=== PATIENT | male | born 1960 | race Caucasian/White ===

== ENCOUNTER → 2020-10-02 | Outpatient (CLI) | payer BC | END | disposition home or self-care (01) | LOC: LABPAT 09:08 | PROVIDERS: ATTEND Orthopaedic Surgery | DX: M50.821 Other cervical disc disorders at C4-C5 level (principal); Z22.322 Carrier or suspected carrier of Methicillin resistant Staphylococcus aureus | CPT/HCPCS: 86850; 86900; 86901; 87070 ==

== ENCOUNTER 2020-10-13 13:00 | Observation (INO) | payer BC ==
[2020-10-08 12:08] VITALS: BMI 30.9
--- NOTE | 2020-10-12 16:09 | P.HPOR ---
History of Present Illness Chief Complaint: UE radiculopathy, weakness, neck pain Patient presents with neck pain. He notes pain for the past 5 months. he is here in referral from Dr. Gates and Dr. Bravo.Patient states that pain has progressively increased recently.He notes pain in the center of his neck that radiates into his bilateral upper extremity . He has numbness, weakness and stiffness. He did physical therapy with minimal relief. He takes [place] and Naproxen twice daily.states he has difficulty with fine motor skills buttoning things and reaching behind his back. He denies any imbalance. Denies any perineal numbness or tingling of fevers chills shortness of breath or chest pain at time Pt has been seen by 3 different surgeons, myself included, and has done his research. He states he would like to pursue disc replacement for his neck. He has undergone all conservative measures including, PT, home exercise, home traction, medications OTC and Rx as well as injections without improvement in his symptoms. He states he is ready for surgery. Review of Systems 14 points review of systems completed and as stated in HPI, all other systems reviewed are negative. Past Medical History Past Medical History: Hypertension, Osteoarthritis (OA), Prostate Disorder, Skin Disorder Additional Past Medical History / Comment(s): hx psoriasis, elevated PSA, states always has postnasal drip History of Any Multi-Drug Resistant Organisms: None Reported Past Surgical History: Joint Replacement, Orthopedic Surgery, Tonsillectomy Additional Past Surgical History / Comment(s): bharath hip reaplacements, arthroscopy bharath knees, Past Anesthesia/Blood Transfusion Reactions: No Reported Reaction Smoking Status: Former smoker - Past Family History Mother Family Medical History: No Reported History Medications and Allergies Home Medications Medication Instructions Recorded Confirmed Type Acetaminophen [Tylenol Extra 500 mg PO DIRECTED PRN 10/08/20 10/08/20 History Strength] HYDROcodone/APAP 5-325MG [Auburn 0.5 tab PO DIRECTED PRN 10/08/20 10/08/20 History 5-325] Naproxen 375 mg PO BID 10/08/20 10/08/20 History lisinopriL 30 mg PO DAILY 10/08/20 10/08/20 History Allergies Allergy/AdvReac Type Severity Reaction Status Date / Time No Known Allergies Allergy Verified 10/08/20 11:58 Physical Examination Osteopathic Statement: *. No significant issues noted on an osteopathic structural exam other than those noted in the History and Physical/Consult. General: Awake, alert, appropriate for age, in no acute distress. HEENT: No unusual neck masses around region of lateral neck triangle, thyroid, supraclavicular groove Heart: Regular rate and rhythm, normal S1, S2 and no murmur/gallop. Lungs: Clear to auscultation bilaterally with no use of accessory muscles. Extremities: Skin warm and dry without acute lesions, coloration, temperature, skin intact, no tenderness or erythema Integument: Hairy patches: Absent Dorsal skin dimples: Absent Cafe au lait spots: Absent Palpation: Please see Pain drawing on Intake sheet for further detail. Midline spinal tenderness: yes cervical E6 Paralumbar tenderness: No E6 Parathoracic tenderness: No E6 Buttocks tenderness: No E6 POSTURAL and MUSCULO-SKELETAL EVALUATION: Coronal Balance: Neutral Recumbent testing: Patient is able to lay flat on back Sagittal Balance: Neutral Shoulder Profile: [Level] Pelvic Girdle: [Level] Neck ROM: some restrictions Shoulder ROM: Symmetric in abduction, ER/IR VASCULAR STATUS : LEFT RIGHT Wrist Pulses intact intact Pedal Pulses (Dors. pedis & post.tibialis) intact intact Color normal normal Edema Absent Absent NEUROLOGIC EXAMINATION: Mental Status: Awake and alert, fully oriented, with normal attention, concentration and memory, and fluent, appropriate speech. Cranial Nerves: I: Olfactory not tested. II: Visual acuity normal, no visual field deficit noted with confrontation. III,IV: Normal pupillary reflexes & intact extraocular movements without nystagmus. V,: Intact symmetrical facial sensation. VII: Intact symmetrical facial motor movement VIII: Hearing intact. IX,X: Intact gag, swallow, & normal voice. XI: Sternocleidomastoid, trapezius function intact. XII: Tongue midline with normal movements. L'hermitte's Sign: Negative / absent Spurling'Sign: Absent bilaterally. Cubital percussion test: Absent bilaterally. Xi-Tinel sign - Carpal region: Absent bilaterally. Straight Leg Raising: Absent bilaterally. Crossed straight leg raise: negative O8 MOTOR EXAM (0-5/5, N/T) STRENGTH RIGHT LEFT Shoulder Abd (not part of the KALEY score) 4 4 Elbow Flexors 5 5 Elbow Extensor 5 5 Wrist Dorsiflexors 5 5 Finger Abductor 5 5 Architectural Drafting Instructor 4 4 Hip Flexor (Not part of KALEY Motor score) 5 5 Knee Flexor 5 5 Knee Extensor 5 5 Ankle dorsiflexor 5 5 Ankle plantarflexion 5 5 Extensor hallucis 5 5 REFLEXES(0-4/2, NT) RIGHT LEFT Upper Extremities 2 2 Lower Extremities 2 2 Pathological Reflexes RIGH T LEFT Montemayor's Absent Absent Clonus Absent Absent Sensory system (0-4, N/T) Test type RU BRITTON RL LL Joint-Position 2 2 2 2 Vibration 2 2 2 2 Pain & LT sense 2 2 2 2 Dermatomal Deficit: none none none none Gait and Functional Evaluation: Romberg's test: Intact bilaterally Toe heel walk / heel-toe walk intact while maintaining satisfactory balance? yes Squatting/straightening w/o assistance to a min of 60 degree knee flexion? yes Single leg stance: intact Trendelenburg sign negative bilaterally Hand and finger dexterity intact bilaterally? yes Disdiadochokinesis examination negative bilaterally? yes Results AP lateral flexion extension films of the cervical from 08/28/2020 spine were reviewed. Occipital cervical C1 2 joints appear stable. The patient does have some cervical spondylosis from C3 to C7 which is noted. Overall alignment is well-maintained sagittal coronal planes. There is no observable facet arthrosis . No fractures dislocations or other lesions noted. MRI is an outside study from [facility] was reviewed. This does demonstrate cervical spondylosis anterior from C4 to C7. There is cervical stenosis from C3 to C6 which seems to be the worst. At C4 5 most central stenosis. There is no myelomalacia noted. There is no fracture dislocation or other lesions noted. Occipital cervical C1 2 joints appear stable. There is no observable facet arthrosis noted. CT of c spine shows similar findings with no facet arthrosis noted. Discussed pts EMG and CT of cervical spine as well as MRI with him. He does have disease from C3-6 and would likey benefit from TDR. He is on board with this and will schedule an appt to meet and schedule surgery. Assessment and Plan Assessment: 1. C4-5 HNP with radiculopathy and stenosis 2. C5-6 HNP with radiculopathy and stenosis 3. C3-4 Stenosis 4. b/l UE weakness and radiculopathy Plan: Spine Surgery Risk Review Dg Duran is a 60-year-old male presenting for evaluation of bilateral upper extremity radiculopathy weakness and neck pain. It was my pleasure to have seen and examined Dg Duran. In our visit today we have had a chance to go over subjective complaints, physical examination findings and treatments including the natural course history without intervention and various interventional options. The patients imaging demonstrates C4 5 and C5 6 stenosis with disc herniation at these levels there is anterior spondylosis noted. There is no myelomalacia of fracture or dislocation there is minimal stenosis at C3 4 which is noted as well. On physical exam, Dg Duran demonstrates bilateral upper extremity weakness bilateral upper extremity radiculopathy. I have explained to the patient that as their condition progresses it will cause further neurological deficits and eventual paralysis. Based on the patients imaging, physical exam, and the rapid progression and disabling nature of their symptoms, at this time I recommend surgery in the form or a: C4 5 and C5 6 total disc replacement. I discussed the risk and benefits of this procedure at length with Dg Duran The patient agreed to considered pursuing the procedure abovementioned. Prior to surgery, he should follow up with her PCP (Cardio, ID, IM etc) for clearance. Questions were invited and answered, and the patient wishes to proceed as outlined below. Currently, I am recommendin. C4 5 and C5 6 total disc replacement 2. Follow up with PCP for surgical clearance 3. Review of surgical risks and benefits as well as an educational packet on the proposed surgical procedure. Risks: All surgical procedures come with inherent risks, including those related to positioning, anesthesia, intraoperative findings, and postoperative complications. It is important to understand that surgery does not come with any guarantee of a successful outcome as complications and adverse events are always possible. The patient was given a handout in office today discussing the surgical procedure and risks associated with the intervention, both of which were discussed with the patient. These risks include but are not limited to the following: * Experiencing same, different or even worse symptoms in back, neck, arms, or legs compared to before surgery. * Requiring further surgery or other forms of treatment presently or at some time in the future at same or other levels of the intended spine surgery. * On an extreme but fortunately relatively rare basis severe complication such as blindness, stroke, heart attack, temporary and/or permanent nerve injury, paralysis, coma, or may occur, sometimes without known explanation. * Surgical complications may include but are not limited to risk of infection, fluid accumulation in the surgical dissection site, including a seroma or hematoma, that requires additional surgery, wound drainage, bleeding, new numbness or weakness, vision changes/loss, spinal fluid leakage, non-healing and/or infected incision, headaches, difficulty or inability to swallow, hoarseness, hemopneumothorax, pneumothorax, impotence, retrograde ejaculation, vaginal dryness; injury to nerves, spinal cord, blood vessels, lymphatics or other vital organs (i.e., bowel injury, injury to the great vessels); heterotopic bone formation; complications related to the hardware such as screws, rods, cages including misplaced hardware, device failure, instrumentation at the wrong spine level, hardware fracture/breakage, or hardware loosening; vertebral failure of the spinal column above or below the newly placed hardware; retained surgical instrumentations or devices and the need for further surgery. * Medical risks of the planned spine surgery include but are not limited to generalized Infections to the whole body or local areas outside of the surgical site (sepsis), heart attack, bleeding, anaphylaxis, meningitis, seizure, epilepsy, hearing loss, burn hernandez, laceration of the head or other areas of the body, bruising, hypersensitivity of the skin, bladder over distension; allergic reaction; shoulder injury related to positioning; fat, blood and air clots to other areas of the body like heart, lungs, brain; f ailure of internal organs such as lungs, kidneys, liver and excessive bleeding. If blood transfusions are necessary, note that transfusions may cause intolerance reactions such as anaphylaxis or other complex reactions. * Despite best efforts, the results of spine surgery might not heal in terms of bone, soft tissues such as skin, fascia, ligaments, and joints. Additionally, in order to achieve best possible results, spine surgery may be carried out beyond the initially planned levels and involve decompression, fusion including insertion of hardware at levels other than the original intended a chasity of surgical interest change some portions of the procedure in order to ensure the best possible outcomes. * With spine surgery and spinal fusion, there are different off label uses of instrumentation (devices, implants and hardware) as well as biological substances (bone morphogenic proteins, demineralized bone matrix) as well as using extra bone from allograft sources (i.e. cadaver bone) or autograft (iliac crest bone, ribs, or the spine itself). The patient has been given information about these practices and their inherent risks and benefits. * [facility] is an educational center that serves as a training facility for neurosurgical and orthopedic spine residents and fellows. Residents are physicians who are completing their surgical intensive training following medical school. They assist in the operating room with direct supervision of the attending surgeons. [place] are surgeons who have completed their training and eligible for board certification. They have o pted for an elective year of more specialized training in their field. They assist in the operating room under the supervision of the attending surgeons. Physician assistants are medically trained surgical providers who function in the outpatient, inpatient, and operating room setting under the direct supervision of the attending surgeon. * [facility] has multiple operating rooms with single and overlapping rooms running daily. They currently function under the required guidelines as produced by the [facility] Finance Committee with regards to the overlapping rooms and will continue to comply with changes to this policy as they occur. The requirements include and are complied with as follows: (1) the critical portions of the overlapping rooms will not occur at the same time, (2) the attending physician will be physically present during the critical portions of the procedure and immediately available during the entire case, and (3) a back-up attending is designated should the primary attending not be immediately available. * * we discussed at length the different clinical signs and symptoms imaging as well as surgical option for the patient. The patient has done his homework he is very well educated he is looked at all the different options and visited 2 different surgeons. At this time he feels a disc replacement is the best option for him. He does not want fusion. He has done his homework and he knows that there is a risk of adjacent segment breakdown with fusion which is mitigated and lessened by having disc replacements. I discussed the risks and benefits as well as the options and alternatives to screw placement. We did discuss that the type of disc he wants by [facility] is only FDA approved for 1 level but we would make attempts to get this approved for the levels that he needs done as it is the best option disc replacement for him. This is a semi-constraint disc with good track record which would allow for decompression stability as well as the correct amount of motion for him. He feels that this is his best option and would like to pursue this. The patient has had a chance to review all the listed information, has been given print outs detailing this information, and has had all his/her questions answered to their satisfaction. It was my pleasure to have seen and examined Dg Duran. In our visit today we have had a chance to go over my understanding of our patient's current condition, the natural course history without intervention and various interventional options. Questions were invited and answered, and the patient wishes to proceed as outlined above. I have seen and examined the patient for 25 minutes and we have spent more than 50% of the time in repeat and detailed counseling about the patient's condition, its natural course history with out and as much as can be predicted with surgery and re-review of various surgical treatment options. In conclusion, Dg Duran and requested we proceed with the above suggested surgery and are willing to accept risks and limitations of the suggested surgery as nature of the disease process and our best attempts at treatment for the condition. Thank you again for allowing us to be part of your patient's care. Please don't hesitate to contact me if you have any further questions. Signed and authenticated by: Leonard Bautista [facility], [address] [address] Time with Patient: Greater than 30
[~2020-10-13 13:00] MED LIST: ACETAMINOPHEN TAB 500 MG TAB PO PRN; DEXAMETHASONE SOD PHOSPHATE 4 MG/ML 1 ML VIAL IV ONE; GABAPENTIN 300 MG CAP PO PRN; LIDOCAINE 1% (10MG/ML) FOR IV START INTRADERMA PRN; MIDAZOLAM 2 MG/2 ML VIAL IV PRN; ONDANSETRON 4 MG/2 ML VIAL IVP ONE; ONDANSETRON 4 MG/2 ML VIAL IVP PRN; TRANEXAMIC ACID 1,000 MG in SODIUM CHLORIDE 0.9% 100 ML IVPB PRN
[2020-10-13] MEDS: LACTATED RINGERS 1,000 ML IV SCH (13:43)
[2020-10-13] MEDS ORDERED: KETOROLAC 15 MG/ML 1 ML VIAL ONE (16:55)
[2020-10-13] MEDS ORDERED: LABETALOL 5 MG/ML VIAL MDV ONE (16:55)
[2020-10-13] MEDS ORDERED: PROPOFOL 10 MG/ML 20 ML VIAL IV ONE (16:55)
[2020-10-13] MEDS ORDERED: MIDAZOLAM 2 MG/2 ML VIAL ONE (16:55)
[2020-10-13] MEDS ORDERED: LIDOCAINE 1% INJ 10MG/ML (20 ML MDV) ONE (16:55)
[2020-10-13] MEDS ORDERED: fentaNYL (PF) 50 MCG/ML 2 ML AMP ONE ×2 (16:55)
[2020-10-13] MEDS ORDERED: KETAMINE 10 MG/ML 20 ML VIAL ONE (16:55)
[2020-10-13] MEDS ORDERED: DEXAMETHASONE SOD PHOSPHATE 10 MG/ML 1 ML VIAL ONE (16:55)
[2020-10-13] MEDS ORDERED: TRANEXAMIC ACID 1,000 MG/10 ML VIAL ONE (16:55)
[2020-10-13] MEDS ORDERED: SUCCINYLCHOLINE CHLORIDE 100 MG/5 ML SYR IV ONE (16:55)
[2020-10-13] MEDS ORDERED: THROMBIN (BOVINE) 5,000 UNIT VIAL TOPICAL ONE (17:26)
[2020-10-13] MEDS ORDERED: LIDOCAINE 2% INJ 20 MG/ML SQ ONE (17:46)
[2020-10-13] MEDS ORDERED: GELATIN SPONGE,ABSORB (LARGE) 1 EACH SPONGE TOPICAL ONE (17:46)
[2020-10-13] MEDS ORDERED: LACTATED RINGERS 1,000 ML IV ONE (19:30)
[2020-10-13] MEDS ORDERED: HYDROcodone/APAP 10-325MG 1 EACH TAB PO PRN (20:12)
[2020-10-13] MEDS ORDERED: ONDANSETRON 4 MG/2 ML VIAL IVP PRN (20:12)
[2020-10-13] MEDS ORDERED: CYCLOBENZAPRINE 10 MG TAB PO PRN (20:12)
[2020-10-13] MEDS ORDERED: HYDROcodone/APAP 5-325MG 1 EACH TAB PO PRN (20:12)
[2020-10-13] MEDS ORDERED: DEXAMETHASONE SOD PHOSPHATE 4 MG/ML 1 ML VIAL IV PRN (20:16)
--- NOTE | 2020-10-13 20:22 | XR ---
EXAMINATION TYPE: XR cervical spine limited DATE OF EXAM: 10/13/2020 COMPARISON: NONE HISTORY: Intraoperative TECHNIQUE: 6 views submitted FINDINGS: Endotracheal tube noted. Technique markedly limited. Resolution reduced. Metallic instrumen t is seen anterior to a multiple cervical spine vertebral segments with subsequent postsurgical vital e. ET tube is somewhat deviated from right to left but could be positional correlate clinically. IMPRESSION: Intraoperative images see above.
[2020-10-13] MEDS: HYDROmorphone 0.5 MG/0.5 ML SYRINGE IVP PRN ×5 (20:35→23:57)
[2020-10-13] MEDS ORDERED: SENNOSIDES 8.6 MG TAB PO PRN (20:42)
[2020-10-13] MEDS ORDERED: diphenhydrAMINE 50 MG/ML 1 ML VIAL IVP ONE (20:55)
[2020-10-13] MEDS ORDERED: hydrALAZINE HCL 20 MG/ML 1 ML VIAL IVP ONE (21:08)
[2020-10-13 22:40] VITALS: RESP 18
[2020-10-13] MEDS: GABAPENTIN 300 MG CAP PO SCH (22:55)
[2020-10-13] MEDS: 0.9% NACL WITH KCL 20 MEQ/L 1,000 ML IV SCH (22:56)
[2020-10-13] MEDS: KETOROLAC 15 MG/ML 1 ML VIAL IVP SCH (23:01)
[2020-10-13] MEDS: ceFAZolin 3 GM in SODIUM CHLORIDE 0.9% 100 ML IVPB SCH (23:48)
[2020-10-14] MEDS: HYDROmorphone 0.5 MG/0.5 ML SYRINGE IVP PRN (04:12)
[2020-10-14 05:31] VITALS: BP 138/84; PULSE 98; TEMP 98
[2020-10-14] MEDS: KETOROLAC 15 MG/ML 1 ML VIAL IVP SCH (06:05)
[2020-10-14] MEDS: LACTATED RINGERS 1,000 ML IV SCH (06:10)
--- NOTE | 2020-10-14 07:51 | FL ---
EXAMINATION TYPE: FL guidance operating room DATE OF EXAM: 10/13/2020 HISTORY: Fluoroscopy time 1 minute and 19 seconds of fluoroscopy provided. IMPRESSION: 1. Fluoroscopy time.
--- NOTE | 2020-10-14 07:55 | XR ---
EXAMINATION TYPE: XR cervical spine limited DATE OF EXAM: 10/14/2020 COMPARISON: NONE HISTORY: Postop TECHNIQUE: 3 views submitted. FINDINGS: Soft tissue emphysema is noted. There is thickening of the prevertebral soft tissue structu res which may be postoperative. Postsurgical changes at C4-5 and C5-6 which appear in near-anatomic a lignment. Multilevel hypertrophic and degenerative changes. Multilevel facet arthropathy. Calcificati on soft tissue the neck likely vascular and related to the carotid artery atherosclerotic changes. IMPRESSION: Postoperative change see above.
[2020-10-14] MEDS: ceFAZolin 3 GM in SODIUM CHLORIDE 0.9% 100 ML IVPB SCH (08:20)
[2020-10-14] MEDS: GABAPENTIN 300 MG CAP PO SCH (08:20)
[2020-10-14 09:03] LABS: African American GFR (CKD) >90 (>60 ml/min/1.73 sqM); Anion Gap 11 mmol/L; Blood Urea Nitrogen 11 mg/dL (9-20); Calcium 9.1 mg/dL (8.4-10.2); Carbon Dioxide 22 mmol/L (22-30); Chloride 102 mmol/L (98-107); Glucose 134 mg/dL (74-99); Non-African American GFR(CKD) >90 (>60 ml/min/1.73 sqM); Potassium 4.2 mmol/L (3.5-5.1); Sodium 135 mmol/L (137-145)
--- NOTE | 2020-10-14 09:03 | P.PN ---
Subjective Progress Note Date: 10/14/20 Patient seen and examined. He is eating breakfast is doing fairly well. He states the pain in his arms is better. Notes some tension in his neck but otherwise feels good. Denies any fevers chills shortness of breath or chest pain at this time. Objective - Vital Signs Vital signs: Vital Signs Temp 98.0 F 10/14/20 05:29 Pulse 98 10/14/20 05:29 Resp 18 10/14/20 05:29 BP 138/84 10/14/20 05:29 Pulse Ox 96 10/14/20 05:29 Intake & Output 10/13/20 10/14/20 10/14/20 18:59 06:59 18:59 Intake Total 1050 1930 Output Total 250 Balance 1050 1680 Weight 101.4 kg Intake: IV 1050 850 Oral 1080 Output: Urine 200 Estimated Blood Loss 50 Other: # Voids 1 # Bowel Movements 0 - Exam Patient is alert and oriented 3 appears well-nourished well-hydrated is in no acute distress. They does not appear septic. On exam the patient has no tenderness to palpation of her thoracic or lumbar spine. There is no edema or ballottement sign. They have good strength in her lower extremities with 5 out of 5 dorsiflexion plantar flexion EHL and FHL bilaterally. Upper extremities show 5/5 strength in all major muscle groups. There is FROM that is painless of the b/l UE and LE in all major joints. They are intact to light touch sensation in L2 to S1 nerve distribution. Patient has palpable dorsalis pedis was posterior tibial pulses. Compartments are soft and compressible. Patient shows a negative Homans, Montemayor's, negative Babinski's negative clonus bilaterally. negative straight leg raise bilaterally. No tensioning signs.Cranial nerves II through XII are grossly intact. Overall alignment is well-maintained in the sagittal coronal planes. C collar in place Incision is clean dry and intact no erythema or ecchymosis or edema no swelling Assessment and Plan Assessment: 1. C4-5 HNP with radiculopathy and stenosis 2. C5-6 HNP with radiculopathy and stenosis 3. C3-4 Stenosis 4. b/l UE weakness and radiculopathy Plan: -Appreciate medicine management. Symptom Control: -Pain control: [Adequate at this time] . Activity: -Aggressive ambulation protocol. OOB with all meals. OOB or in chair 4-5x daily. -PT/OT Soft cervical collar to comfort Prophylaxis: -TEDs, SCDs, mechanical ppx. OK for heparin today. Early ambulation is best. -GI ppx. -Indomethacin 50 mg twice a day for HO prophylaxis Imaging/labs: X-rays of the cervical spine reviewed demonstrate in place intact hardware [-Trend labs as appropriate] Intervention: Soft cervical collar PT OT Pain control as needed Dispo: Home today
--- NOTE | 2020-10-14 09:09 | P.OP ---
Date of Procedure: 10/13/20 Preoperative Diagnosis: 1. C4-5 and C5-6 stenosis 2. C4-5 and C5-6 Spondylosis 3. UE radiculopathy 4. UE weakness Postoperative Diagnosis: 1. C4-5 and C5-6 stenosis 2. C4-5 and C5-6 Spondylosis 3. UE radiculopathy 4. UE weakness Procedure(s) Performed: 1. C4-5 total disc replacement 2. C5-6 total disc replacement Implants: Prodisc C 6 mm XL times 2 Anesthesia: GETA Surgeon: Leonard Garcia Metal Pattern Maker #1: Minesh Garcia (Was present for the entire case and was necessary due to the complexity of the case. ) Estimated Blood Loss (ml): 50 IV fluids (ml): 2,500 Urine output (ml): 0 Pathology: none sent Condition: stable Disposition: PACU Indications for Procedure: Patient presents with neck pain. He notes pain for the past 5 months. he is here in referral from Dr. Gates and Dr. Bravo.Patient states that pain has progressively increased recently.He notes pain in the center of his neck that radiates into his bilateral upper extremity . He has numbness, weakness and stiffness. He did physical therapy with minimal relief. He takes Spearman and Naproxen twice daily.states he has difficulty with fine motor skills buttoning things and reaching behind his back. He denies any imbalance. Denies any perineal numbness or tingling of fevers chills shortness of breath or chest pain at time Pt has been seen by 3 different surgeons, myself included, and has done his research. He states he would like to pursue disc replacement for his neck. He has undergone all conservative measures including, PT, home exercise, home traction, medications OTC and Rx as well as injections without improvement in his symptoms. He states he is ready for surgery. Operative Findings: C4-5 large disc herniation, stenosis C5-6 collapse, stenosis Description of Procedure: After positive identification, the patient received general endotracheal anesthesia. Adequate IV access was placed. IV antibiotic prophylaxis and a small dose of steroids were applied within 1 hour of incision. The patient was positioned supine on the Keo table, an interscapular pad with supportive cervical lordosis roll, and the head was placed on a jelly roll. Arms were circumferentially padded. Shoulder pull down with 3-inch tape was carried out. Biplanar C-arm imaging was carried out. Sterile prepping and draping ensued and safety timeout was carried out. Electrodiagnostic signals in terms of the SEPs and MEPs had been mapped out before surgery and were retrieved and repeated. Upon completion of the safety timeout, we used the mapped out incision area and infiltrated the about 3 fingerbreadths incision area with 5 mL of 0.25 percent Marcaine with epinephrine and saline. A transverse incision was then made 3 fingerbreadths within Petra's lines down to the platysma. The platysma was split longitudinally, and the superficial layer of the middle cervical fascia was identified and gently spread out medial to the sternocleidomastoideus. We then carefully translated the esophagus and trachea medially and the carotid sheath laterally. We split the deep layer of the middle cervical fascia and reflected the omohyoid caudally. We were able to reach the deep cervical fascial layer with large osteophytes and used the C- arm to localize and confirm C4-5, C5-6 without violating any of the spaces. The longus colli muscles were then reflected left and right from the uncovertebral osteophytes that were large. Under C-arm guidance, we resected these osteophytes and anterior syndesmophytes. Once she had been cleared out, bone wax was used to seal any bone bleeders. We then carefully placed 2 depth measured Shadow- Line blades underneath the longus colli muscles and gently reflected our expos ure with a transverse global position system technician. The endotracheal cuff was deflated by about 1 mL to minimize retropharyngeal pressure. With an AP imaging, we verified midline. We now under C-arm guidance placed an awl and then two 14 mm pins into the lower half of the C6 body in its midsection and the midpoint of C5. We then gently disengaged the C5-6 vertebral bodies from one another with an intervertebral global position system technician and a distraction tool using a Sewell distractor. An operating microscope was now brought into place, and we carefully burred off the upper posterior endplate of C6 and the medial edge of the uncovertebral joints. We minimized any endplate burring and scraped off any cartilage after the disc had been debrided. We then undermined with a small 6.0 curet the posterior longitudinal ligament and the posterior annulus osteophyte, and we resected the disc osteophyte complex behind the vertebral bodies and posterior to the uncovertebral joints until we had a clear, palpable exit space of the roots on both sides. Local hemostatic agents were placed into the foramina. We checked for neural passage with small ball probes under C-arm guidance. With satisfactory compression and religious of anterior height achieved, we now placed a trial spacer, 6 mm height with extra-large template and then after this had been secured, flush with the posterior vertebral body. We drilled 2 troughs with a side-cutting drill saw under C-arm guidance with pulsed fluoroscopy. We then passed the chisel to check the troughs for completeness. We then removed the templating tool, cleaned out the trough fully, and then inserted the disc with the lodge sales associate. We then released the C6 pin. We sealed the troughs of the krishan with bone wax. The pin site of C6 was sealed with bone wax as well. There were no electrodiagnostic changes. We now placed a pin in the same technique as stated before at C4. Discectomy was carried out and we distracted the C4-5 disc space parallel. We were able to then under the use of a Midas resect the posterior-inferior endplate of C4, the posterior-superior endplate of C5, and the medial posterior edges of the uncovertebral joints. Foraminotomies were carried out. We removed the posterior annulus and disc and performed wide diskectomies and foraminotomies bilaterally. Decompression was checked with fluoroscopy and small angled ball probes to make sure we had full decompression behind the vertebral bodies and the foramina. With that having been accomplished, again, we placed a 6 mm XL trial spacer and drilled endplate troughs with a side cutting saw under use of pulsed fluoroscopy. We then passed the chisel for completeting the troughs. We then completed the trough cut and removed the trial implant and placed the actual disc implant without issues. All pins were now removed. Bone wax was used to seal all pin sites. Biplanar imaging revealed satisfactory alignment and hardware placement in all planes. Thorough irrigation was carried out. We confirmed for hemostasis and no CSF leak. There were no neural changes on sequential motor checks or SEPs. We closed in layers with 3-0 Vicryl for platysma, 3-0 Vicryl subcu and 4-0 Monocryl for skin. Acrylic skin glue was applied. A sterile dressing was applied after the glue had dried. The patient was returned to the recovery room in stable, extubated condition. He had received IV Toradol. POSTOPERATIVE PLAN: Postop mobilization without collar. Gentle neck range of motion will be encouraged. Indomethacin for 2 weeks, 50 mg twice daily for HO prophylaxis.
--- NOTE | 2020-10-14 10:04 | P.DS ---
Providers Date of admission: 10/13/2020 Expected date of discharge: 10/14/20 Attending physician: Leonard Garcia DO Primary care physician: Omid Prior Hospital Course: Date of admission: 10/13/2020 Date of discharge: 10/14/2020 Admission diagnosis: -C4-5 HNP with radiculopathy and stenosis -C5-6 HNP with radiculopathy and stenosis -b/l UE weakness and radiculopathy Discharge diagnosis: Same Attending physician: Dr. Garcia Surgical procedures: C4-C5, C5-C6 total disc replacement Brief history: Patient is a 60-year-old male with a history of bilateral upper extremity weakness and radiculopathy. At this point patient has failed conservative treatment measures and has opted to proceed with a elective C4-C5, C5-C6 total disc replacement. Hospital course: Details of patient's surgery can be found in operative report. Patient tolerated the procedure well and was subsequently transported to orthopedic floor. Patient's orthopeidc and medical care was provided daily. Patient had daily laboratory tests performed for evaluation of overall blood counts. Patient had daily physical therapy to include strengthening range of motion as well as education with walker ambulation. Patient was noted to have a relatively uneventful postoperative course. Patient reported satisfactory pain control with oral pain medications by postoperative day 1. Patient showed satisfactory progress with physical therapy. Patient moved steadily through the program and had no difficulty meeting the goals by postoperative day 1. Given patient's otherwise satisfactory course and having met physical therapy goals, plan is to discharge patient home on postoperative day 1. Discharge condition/disposition: Patient will be discharged home in stable condition. Discharge medications: Instructions are given on resumption of patient's normal daily medications per primary care recommendation, in addition patient will be prescribed [place] 5 mg/325 mg; indomethacin 50 mg; senna 8.650 mg; Flexeril 10 mg: Gabapentin 300 mg. Spine Discharge and Recovery Instructions Date of Surgery: 10/13/2020 Dressing: Leave your dressing in place for a total of 5 days post operatively. Then you may remove your dressing and leave open to air. Keep the area clean and if not able to keep area clean, then cover with sterile gauze and tape. Showering: You may shower 3 days after your procedure allowing soap and water to run over incision. Do not scrub. Do not soak. Blot dry. Follow up: Please confirm a follow up appointment with your surgeon 3 weeks post operatively. Please make an appointment to follow up with your PCP in 1-2 weeks after surgery for evaluation 3 phase, 3-week plan POST OP WEEKS 1-3 1. Lifting/carrying/pushing/pulling limited to less than 5 pounds. 2. Do not sit for longer than 15 minutes at one time. Get up and walk around. Prolonged sitting is NOT advised. If you lay down, see if you can tolerate laying down on you front (belly side) 3. Walk for periods of 15 minutes = 1 mile but no longer; do it multiple times times each day. 4. Ice your low back after activity. POST OP WEEKS 3-6 1. Lifting limited to less than 20 pounds. 2. Do not sit for longer than 30 minutes at a time. Frequently change positions. Use a sit-to stand workstation or take frequent breaks from sitting if you have returned to work. 3. Walk for 30 minutes each day. If possible, do these three or more times a day POST OP WEEKS 6+ At your 6-week appointment we will give you a physical therapy referral to focus on a core stabilization and strengthening program. You should also work on leg & buttock strengthening, hamstring & quadriceps stretching, and continue a low impact aerobic activity program such as swimming, walking, or riding a stationary bicycle. During the initial 6 weeks after your surgery, you are at the highest risk of re-injuring your spine. You should generally avoid BLTs (bending, lifting and twisting combination motions) and follow the above guidelines to reduce the chance of reinjury. You can anticipate post op appointments in our office at approximately 3 weeks and 6 weeks after your surgery. INCISION CARE: If your incision is not draining you do NOT need to cover it with a dressing. Keep your incision clean, dry and intact. In most cases, we apply skin glue, paulina or sutures to the incision at the time of surgery. This will be like a crust or have the appearance of a scab and will fall off in time on its own. The stitches or paulina need to be removed at 3 weeks post op appointment. You may begin to shower 3 days after surgery (this allows the glue to rosenbaum well). However, please avoid scrubbing the incision site or peeling off any of the skin glue. This will ensure optimal healing of your incision. Also, during this time avoid soaking the incision area in water - this includes swimming pools, hot tubs or baths. No ointments, lotions or oils on the incision until your surgeon allows. Leave paulina, sutures or glue in place. Neurological dysfunction that comes on suddenly can also be a sign of a stroke. Below some common symptoms of a stroke are listed: B - balance difficulty such as sudden onset walking or leaning to one side - NEW E - eye problem such as sudden double vision or trouble seeing on one side - NEW F - Facial weakness or numbness on one side - NEW A - Arm or leg weakness or numbness on one side - NEW S - Slurred speech or difficulty with word finding - NEW T - Time is BRAIN! Call 911 as soon as you recognize these symptoms Diet: Consume a regular diet rich in vegetables and lean protein such as chicken or fish. You should consume in a ratio of approximately 20% fats|40% carbohydrates|40%protein. Vegetables, sweet potatoes, brown rice or quinoa are examples of good carbohydrates. Chips, white bread, cookies and sweets/sugar are examples of bad carbohydrates. Limit your bad carbs, go wild with good carbs. "Life's Simple 7" Guidelines as per [place] [employer] These will help you reclaim your life after surgery and blending tank helper in your recovery, keeping in mind your restrictions. (1) Get Active. Physical activity can help people lose weight, control high blood pressure and cholesterol, feel emotionally better, and sleep better. (2) Control Cholesterol. Avoid a diet high in saturated fat, trans fat, & cholesterol. Limit whole milk & cream, ice cream, butter, egg yolks, processed meats (like sausage and hot dogs), and fatty meats. Choose healthy foods that are low in saturated fat, trans fat and cholesterol which include: Fruits and vegetables, fiber rich grain products (like whole grain pasta and brown rice), lean meat such as chicken, fish, nuts, seeds, and legumes. (3) Eat Better. Eat small portions. Shop at the grocery with a list and do not stray from it. Tips for a healthy diet include: Limit sodium intake to less than 1500mg daily, avoid prepackaged, processed, and fast foods, choose a diet rich in fruits, vegetables, and whole grain, high fiber foods, and limit saturated & cholesterol in your diet. (4) Manage Blood Pressure. If you have high blood pressure, you should have a cuff at home so that you can check your blood pressure regularly. Be sure you have a good cuff. An arm one is generally better than a wrist one. Bring the cuff to a doctor's appointment to validate that the measurements that your cuff are taking are accurate. Take your blood pressure twice daily when you are sitting down and relaxing. Record the numbers in a log and bring this log with you to your doctors' appointments. (5) Lose Weight if your BMI is above 25. A healthy BMI is between 19-25. To calculate Your BMI, you may use a Standard BMI Calculator on the NIH BMI website: <www.nhlbi.nih.gov/guidelines/obesity/BMI/bmicalc.htm>. Weigh oneself daily. If you are overweight, set a goal to lose weight. A pound a week loss if needed is a good target. (6) Reduce Blood Sugar. Limit foods and liquids with "added sugars." (Added sugars include sucrose, fructose, glucose, maltose, dextrose, high fructose corn syrup, corn syrup, concentrated fruit juice and honey). (7) Stop Smoking. If you smoke, quitting smoking is one of the best things that you can do for your health. Smoking increases your risk of heart attack, stroke, and peripheral vascular disease, which is a build-up of plaque in your arteries. Please discard all the cigarettes and lighters in your house. Have a plan for what you will do when you have the urge to smoke. Direct and second- hand smoke shortens your life as well as the lives of your family, friends and others around you. For your health and the health of those around you, please consider quitting! Proper Bending Body Mechanics: Maintain a wide stance with one foot slightly in front of the other. Keep your back straight. Bend utilizing the strength in your hips and knees. Do not bend at the waist. Maintain the lifted object at your waist-level close to your body. Avoid lifting weight that causes immediately pain or pain anywhere in the body afterwards. Smoking/Nicotine If there was ever one thing that you could do to increase your overall health, decrease your risk of cardiovascular problems by about 39% the second you make the choice, it is to STOP SMOKING. Your body's most instant gratification is the second you stop smoking. We have all heard the studies, read the articles but it is true, smoking is extremely bad for your overall health, and moreover it is detrimental to your bone health. Nicotine, IN ANY FORM, kills bone cells, prevents your body from healing fractures, and significantly prolongs healing after surgery. In spine surgery specifically, it increases your risk of not healing your bones to create a fusion and increases your risk of having a revision surgery due to this up to 60%. I know it is hard. I know it feels impossible. But there are ways. Take control of your life. We are here to help you through it. And when you are ready, ask us and we can direct you to help if you desire. Use the START Plan to Quit Smoking (please visit the Helpguide.org website listed below for more information): S = Set a quit date. Choose a date within the next 2 weeks, so you have enough time to prepare without losing your motivation to quit. If you mainly smoke at work, quit on the weekend, so you have a few days to adjust to the change. T = Tell family, friends, and co-workers that you plan to quit. Let your friends and family in on your plan to quit smoking and tell them you need their support and encouragement to stop. Look for a quit andrea who wants to stop smoking as well. You can help each other get through the rough times. A = Anticipate and plan for the challenges you'll face while quitting. Most people who begin smoking again do so within the first 3 months. You can help yourself make it through by preparing ahead for common challenges, such as nicotine withdrawal and cigarette cravings. R = Remove cigarettes and other tobacco products from your home, car, and work. Throw away all your cigarettes (no emergency pack!), lighters, ashtrays, and matches. Wash your clothes and freshen up anything that smells like smoke. Shampoo your car, clean your drapes and carpet, and steam your furniture. T = Talk to your doctor about getting help to quit. Your doctor can prescribe medication to help with withdrawal and suggest other alternatives. If you can't see a doctor, you can get many products over the counter at your local pharmacy or grocery store, including the nicotine patch, nicotine lozenges, and nicotine gum. Resources for Quitting Smoking: <https://w .[place].gov/documents/[facility]/Quit_Tobacco_Resources_for_patients_313480_7.pdf> Supplementation: Take recommended dosages of Vitamin D and Calcium to help fortify your bones and help them to heal. See your health maintenance packet for dosages and recommended levels. DVT/VTE prophylaxis: You will be given compression stockings from the hospital. Wear these daily for the first two weeks after surgery. You may take them off at night. You may be prescribed a medication to help thin your blood. Take this as directed. If you are not prescribed this medication, early and frequent ambulation has been shown to be the best prophylaxis to deep vein thrombosis and sequelae related to this event. Assessment: -C4-5 HNP with radiculopathy and stenosis -C5-6 HNP with radiculopathy and stenosis Procedures: C4 to C5 and C5 to C6 total disc replacement Patient Condition at Discharge: Good Plan - Discharge Summary New Discharge Prescriptions: New Indomethacin [Indocin] 50 mg PO BID #28 capsule HYDROcodone/APAP 5-325MG [[place] 5-325] 1 - 2 tab PO Q4H PRN #56 tab PRN Reason: Pain Sennosides/Docusate Sodium [Senna Plus 8.6-50 mg Softgel] 1 each PO BID PRN #20 capsule PRN Reason: Constipation Cyclobenzaprine [Flexeril] 10 mg PO TID PRN #40 tab PRN Reason: Spasms Gabapentin [Neurontin] 300 mg PO TID #90 cap Continue lisinopriL 30 mg PO DAILY Discontinued Naproxen 375 mg PO BID HYDROcodone/APAP 5-325MG [[place] 5-325] 0.5 tab PO DIRECTED PRN PRN Reason: Pain No Action Acetaminophen [Tylenol Extra Strength] 500 mg PO DIRECTED PRN PRN Reason: Pain Discharge Medication List Acetaminophen [Tylenol Extra Strength] 500 mg PO DIRECTED PRN 10/08/20 [History] lisinopriL 30 mg PO DAILY 10/08/20 [History] Cyclobenzaprine [Flexeril] 10 mg PO TID PRN #40 tab 10/14/20 [Rx] Gabapentin [Neurontin] 300 mg PO TID #90 cap 10/14/20 [Rx] HYDROcodone/APAP 5-325MG [[place] 5-325] 1 - 2 tab PO Q4H PRN #56 tab 10/14/20 [Rx] Indomethacin [Indocin] 50 mg PO BID #28 capsule 10/14/20 [Rx] Sennosides/Docusate Sodium [Senna Plus 8.6-50 mg Softgel] 1 each PO BID PRN #20 capsule 10/14/20 [Rx] Follow up Appointment(s)/Referral(s): Leonard Garcia DO [Doctor of Osteopathic Medicine] - 2 Weeks Activity/Diet/Wound Care/Special Instructions: Spine Discharge and Recovery Instructions Medications: See medication list All medication refills should be obtained through your primary care doctor or your clinic spine surgeon. Please discuss prescription refills at your follow up appointment. Do not call the hospital for medication refills. Dressing: Leave your dressing in place for a total of 5 days post operatively. Then you may remove your dressing and leave open to air. Keep the area clean and if not able to keep area clean, then cover with sterile gauze and tape. Showering: You may shower 3 days after your procedure allowing soap and water to run over incision. Do not scrub. Do not soak. Blot dry. Follow up: Please confirm a follow up appointment with your surgeon 3 weeks post operatively. Please make an appointment to follow up with your PCP in 1-2 weeks after surgery for evaluation 3 phase, 3-week plan POST OP WEEKS 1-3 1. Lifting/carrying/pushing/pulling limited to less than 5 pounds. 2. Do not sit for longer than 15 minutes at one time. Get up and walk around. Prolonged sitting is NOT advised. If you lay down, see if you can tolerate laying down on you front (belly side) 3. Walk for periods of 15 minutes = 1 mile but no longer; do it multiple times times each day. 4. Ice your low back after activity. POST OP WEEKS 3-6 1. Lifting limited to less than 20 pounds. 2. Do not sit for longer than 30 minutes at a time. Frequently change positions. Use a sit-to stand workstation or take frequent breaks from sitting if you have returned to work. 3. Walk for 30 minutes each day. If possible, do these three or more times a day POST OP WEEKS 6+ At your 6-week appointment we will give you a physical therapy referral to focus on a core stabilization and strengthening program. You should also work on leg & buttock strengthening, hamstring & quadriceps stretching, and continue a low impact aerobic activity program such as swimming, walking, or riding a stationary bicycle. During the initial 6 weeks after your surgery, you are at the highest risk of re-injuring your spine. You should generally avoid BLTs (bending, lifting and twisting combination motions) and follow the above guidelines to reduce the chance of reinjury. You can anticipate post op appointments in our office at approximately 3 weeks and 6 weeks after your surgery. INCISION CARE: If your incision is not draining you do NOT need to cover it with a dressing. Keep your incision clean, dry and intact. In most cases, we apply skin glue, paulina or sutures to the incision at the time of surgery. This will be like a crust or have the appearance of a scab and will fall off in time on its own. The stitches or paulina need to be removed at 3 weeks post op appointment. You may begin to shower 3 days after surgery (this allows the glue to rosenbaum well). However, please avoid scrubbing the incision site or peeling off any of the skin glue. This will ensure optimal healing of your incision. Also, during this time avoid soaking the incision area in water - this includes swimming pools, hot tubs or baths. No ointments, lotions or oils on the incision until your surgeon allows. Leave paulina, sutures or glue in place. Neurological dysfunction that comes on suddenly can also be a sign of a stroke. Below some common symptoms of a stroke are listed: B - balance difficulty such as sudden onset walking or leaning to one side - NEW E - eye problem such as sudden double vision or trouble seeing on one side - NEW F - Facial weakness or numbness on one side - NEW A - Arm or leg weakness or numbness on one side - NEW S - Slurred speech or difficulty with word finding - NEW T - Time is BRAIN! Call 911 as soon as you recognize these symptoms Diet: Consume a regular diet rich in vegetables and lean protein such as chicken or fish. You should consume in a ratio of approximately 20% fats|40% carbohydrates|40%protein. Vegetables, sweet potatoes, brown rice or quinoa are examples of good carbohydrates. Chips, white bread, cookies and sweets/sugar are examples of bad carbohydrates. Limit your bad carbs, go wild with good carbs. "Life's Simple 7" Guidelines as per [place] [employer] These will help you reclaim your life after surgery and blending tank helper in your recovery, keeping in mind your restrictions. (1) Get Active. Physical activity can help people lose weight, control high blood pressure and cholesterol, feel emotionally better, and sleep better. (2) Control Cholesterol. Avoid a diet high in saturated fat, trans fat, & cholesterol. Limit whole milk & cream, ice cream, butter, egg yolks, processed meats (like sausage and hot dogs), and fatty meats. Choose healthy foods that are low in saturated fat, trans fat and cholesterol which include: Fruits and vegetables, fiber rich grain products (like whole grain pasta and brown rice), lean meat such as chicken, fish, nuts, seeds, and legumes. (3) Eat Better. Eat small portions. Shop at the grocery with a list and do not stray from it. Tips for a healthy diet include: Limit sodium intake to less than 1500mg daily, avoid prepackaged, processed, and fast foods, choose a diet rich in fruits, vegetables, and whole grain, high fiber foods, and limit saturated & cholesterol in your diet. (4) Manage Blood Pressure. If you have high blood pressure, you should have a cuff at home so that you can check your blood pressure regularly. Be sure you have a good cuff. An arm one is generally better than a wrist one. Bring the cuff to a doctor's appointment to validate that the measurements that your cuff are taking are accurate. Take your blood pressure twice daily when you are sitting down and relaxing. Record the numbers in a log and bring this log with you to your doctors' appointments. (5) Lose Weight if your BMI is above 25. A healthy BMI is between 19-25. To calculate Your BMI, you may use a Standard BMI Calculator on the NIH BMI website: <www.nhlbi.nih.gov/guidelines/obesity/BMI/bmicalc.htm>. Weigh oneself daily. If you are overweight, set a goal to lose weight. A pound a week loss if needed is a good target. (6) Reduce Blood Sugar. Limit foods and liquids with "added sugars." (Added sugars include sucrose, fructose, glucose, maltose, dextrose, high fructose corn syrup, corn syrup, concentrated fruit juice and honey). (7) Stop Smoking. If you smoke, quitting smoking is one of the best things that you can do for your health. Smoking increases your risk of heart attack, stroke, and peripheral vascular disease, which is a build-up of plaque in your arteries. Please discard all the cigarettes and lighters in your house. Have a plan for what you will do when you have the urge to smoke. Direct and second- hand smoke shortens your life as well as the lives of your family, friends and others around you. For your health and the health of those around you, please consider quitting! Proper Bending Body Mechanics: Maintain a wide stance with one foot slightly in front of the other. Keep your back straight. Bend utilizing the strength in your hips and knees. Do not bend at the waist. Maintain the lifted object at your waist-level close to your body. Avoid lifting weight that causes immediately pain or pain anywhere in the body afterwards. Smoking/Nicotine If there was ever one thing that you could do to increase your overall health, decrease your risk of cardiovascular problems by about 39% the second you make the choice, it is to STOP SMOKING. Your body's most instant gratification is the second you stop smoking. We have all heard the studies, read the articles but it is true, smoking is extremely bad for your overall health, and moreover it is detrimental to your bone health. Nicotine, IN ANY FORM, kills bone cells, prevents your body from healing fractures, and significantly prolongs healing after surgery. In spine surgery specifically, it increases your risk of not healing your bones to create a fusion and increases your risk of having a revision surgery due to this up to 60%. I know it is hard. I know it feels impossible. But there are ways. Take control of your life. We are here to help you through it. And when you are ready, ask us and we can direct you to help if you desire. Use the START Plan to Quit Smoking (please visit the Helpguide.org website listed below for more information): S = Set a quit date. Choose a date within the next 2 weeks, so you have enough time to prepare without losing your motivation to quit. If you mainly smoke at work, quit on the weekend, so you have a few days to adjust to the change. T = Tell family, friends, and co-workers that you plan to quit. Let your friends and family in on your plan to quit smoking and tell them you need their support and encouragement to stop. Look for a quit andrea who wants to stop smoking as well. You can help each other get through the rough times. A = Anticipate and plan for the challenges you'll face while quitting. Most people who begin smoking again do so within the first 3 months. You can help yourself make it through by preparing ahead for common challenges, such as nicotine withdrawal and cigarette cravings. R = Remove cigarettes and other tobacco products from your home, car, and work. Throw away all your cigarettes (no emergency pack!), lighters, ashtrays, and matches. Wash your clothes and freshen up anything that smells like smoke. Shampoo your car, clean your drapes and carpet, and steam your furniture. T = Talk to your doctor about getting help to quit. Your doctor can prescribe medication to help with withdrawal and suggest other alternatives. If you can't see a doctor, you can get many products over the counter at your local pharmacy or grocery store, including the nicotine patch, nicotine lozenges, and nicotine gum. Resources for Quitting Smoking: <https://www.[place]. gov/documents/[facility]/Quit_Tobacco_Resources_for_patients_313480_7.pdf> Supplementation: Take recommended dosages of Vitamin D and Calcium to help fortify your bones and help them to heal. See your health maintenance packet for dosages and recommended levels. DVT/VTE prophylaxis: You will be given compression stockings from the hospital. Wear these daily for the first two weeks after surgery. You may take them off at night. You may be prescribed a medication to help thin your blood. Take this as directed. If you are not prescribed this medication, early and frequent ambulation has been shown to be the best prophylaxis to deep vein thrombosis and sequelae related to this event. Discharge Disposition: HOME SELF-CARE
[2020-10-14 10:33] LABS: Basophils # (A) 0 X 10*3/uL (0.00-0.10); Basophils % (A) 0 %; Eosinophils # (A) 0 X 10*3/uL (0.04-0.35); Eosinophils % (A) 0 %; HCT 40.7 % (39.6-50.0); HGB 13.8 g/dL (13.0-17.0); Lymphocytes # (A) 0.74 X 10*3/uL (0.90-5.00); Lymphocytes % (A) 10.2 %; MCH 30.1 pg (27.0-32.0); MCHC 33.9 g/dL (32.0-37.0); MCV 88.9 fL (80.0-97.0); Mean Platelet Volume 9.2 fL (9.5-12.2); Monocytes # (A) 0.44 X 10*3/uL (0.20-1.00); Monocytes % (A) 6.1 %; Neutrophils # (A) 6.02 X 10*3/uL (1.80-7.70); Neutrophils % (A) 83.3 %; Platelet Count 261 X 10*3/uL (140-440); RBC 4.58 X 10*6/uL (4.40-5.60); RDW 13.5 % (11.5-14.5); WBC 7.23 X 10*3/uL (4.50-10.00)
[2020-10-14] MEDS: 0.9% NACL WITH KCL 20 MEQ/L 1,000 ML IV SCH (10:45)
== END 2020-10-14 11:46 | disposition home or self-care (01) ==
LOC: OR 13:00 → 5NMEDONC 21:00
PROVIDERS: ADMIT Orthopaedic Surgery; ATTEND Orthopaedic Surgery
DX: M50.121 Cervical disc disorder at C4-C5 level with radiculopathy (principal); M48.02 Spinal stenosis, cervical region; M47.22 Other spondylosis with radiculopathy, cervical region; M25.78 Osteophyte, vertebrae; I10 Essential (primary) hypertension; E78.5 Hyperlipidemia, unspecified; N40.0 Benign prostatic hyperplasia without lower urinary tract symptoms; N52.9 Male erectile dysfunction, unspecified; R06.83 Snoring; G47.10 Hypersomnia, unspecified; L40.9 Psoriasis, unspecified; R09.82 Postnasal drip; Z20.822 Contact with and (suspected) exposure to COVID-19; Z79.899 Other long term (current) drug therapy; Z79.891 Long term (current) use of opiate analgesic; Z79.1 Long term (current) use of non-steroidal anti-inflammatories (NSAID); Z96.643 Presence of artificial hip joint, bilateral; Z90.89 Acquired absence of other organs; Z98.890 Other specified postprocedural states; Z87.891 Personal history of nicotine dependence; Z82.49 Family history of ischemic heart disease and other diseases of the circulatory system; Z83.3 Family history of diabetes mellitus
CPT/HCPCS: 22856; 22858; 86900; 86901; 80048; 85025; 86850; 87635; 72040 ×2; G0378; L0120; C1713; C1762; J2001; J0360; J1200; J1100; J0690 ×2; J2405; J1885 ×2; J1170 ×2